=== PATIENT | male | born 1950 | race Caucasian/White ===

== ENCOUNTER → 2017-05-11 07:32 | Outpatient (CLI) | payer MEDICARE, OTHER, SELFPAY ==
[2017-05-11 08:04] LABS: Basophils % 0.6 % (0.1-2.0); Eosinophils # 0.3 K/mm3 (0.0-0.4); Eosinophils % 4.5 % (0.1-12.0); Hematocrit 51.2 % (42.0-52.0); Hemoglobin 16.7 g/dL (14.1-18.0); Lymphocytes # 2.8 K/mm3 (0.7-4.5); Lymphocytes % 40.8 K/mm3 (10-50); Mean Corpuscular HGB Conc 32.7 g/dL (31.8-35.4); Mean Corpuscular Hemoglobin 30.2 pg (27.0-31.2); Mean Corpuscular Volume 92.3 fl (80-94); Mean Platelet Volume 7.1 fl (7.4-10.4); Monocytes # 0.4 K/mm3 (0.1-1.0); Monocytes % 5.8 % (1.7-9.3); Neutrophils # 3.4 K/mm3 (1.8-7.8); Neutrophils % 48.2 % (37.0-80.0); Platelet Count 369 K/mm3 (142-424); Red Blood Count 5.55 M/mm3 (4.60-6.20); Red Cell Distribution Width 13.4 % (11.5-17.5); White Blood Count 6.9 K/mm3 (4.8-10.8)
[2017-05-11 09:19] LABS: Hemoglobin A1C 9.9 % (0.0-7.0)
[2017-05-11 09:55] LABS: Alanine Aminotransferase 66 U/L (12-78); Albumin Level 4.2 gm/dL (3.4-5.0); Albumin/Globulin Ratio 1.1 (1.1-1.8); Alkaline Phosphatase 83 U/L (46-116); Anion Gap 15.3 mEq/L (5-15); Aspartate Amino Transferase 23 U/L (15-37); Bilirubin,Total 0.3 mg/dL (0.2-1.0); Blood Urea Nitrogen 26 mg/dL (7-18); Calcium 9.9 mg/dL (8.5-10.1); Carbon Dioxide 28 mmol/L (21.0-32.0); Chloride 99 mmol/L (98-107); Chol/HDL Ratio 5.8 (1-3.5); Cholesterol 174 mg/dL (140-200); Creatinine,Serum 1.02 mg/dL (0.70-1.30); Estimated Glomerular Filt Rate 73 ml/min (>60); GFR (African American) 89 ML/MIN (>60); Globulin 3.7 gm/dl (1.3-3.2); Glucose 315 mg/dL (74-106); HDL Cholesterol 30 mg/dL (27-67); LDL Cholesterol 85 mg/dL (0-130); Potassium 5.3 mmoL/L (3.5-5.1); Sodium 137 mmol/L (136-145); Thyroid Stimulating Hormone 6.18 uIU/ml (0.358-3.740); Total Protein,Serum 7.9 gm/dL (6.4-8.2); Triglycerides 295 mg/dL (30-200); VLDL Cholesterol 59 mg/dL (0-40)
== END ==
PROVIDERS: PCP Nurse Practitioner Family; Visit Provider Nurse Practitioner Family
DX: E03.9 Hypothyroidism, unspecified (principal); E11.9 Type 2 diabetes mellitus without complications
CPT/HCPCS: 36415; 80053; 80061; 83036; 84436; 84443; 85025

== ENCOUNTER → 2017-07-11 08:07 | Outpatient (CLI) | payer MEDICARE, OTHER, SELFPAY ==
[2017-07-11 09:40] LABS: T4 (Thyroxine) 9.6 ug/dl (4.7-13.3); Thyroid Stimulating Hormone 1.59 uIU/ml (0.358-3.740)
== END ==
PROVIDERS: Visit Provider Nurse Practitioner Family
DX: E03.9 Hypothyroidism, unspecified (principal)
CPT/HCPCS: 36415; 84436; 84443

== ENCOUNTER → 2017-08-31 07:48 | Outpatient (CLI) | payer MEDICARE, OTHER, SELFPAY ==
[2017-08-31 07:52] LABS: Microscopic, Urine URINE MICROSCOPIC (MICROSCOPIC)
[2017-08-31 08:34] LABS: Appearance,Urine CLEAR (Clear); Bilirubin,Urine Negative (Negative); Blood, Urine Negative (Negative); Color,Urine YELLOW (Yellow); Glucose,Urine (UA) Negative (Negative); Ketones,Urine Negative (Negative); Leukocyte Esterase,Urine Negative (Negative); Nitrate,Urine Negative (Negative); PH,Urine 5.5 (5.0-8.5); Protein,Urine 1+ (Negative); Urobilinogen,Urine 0.2 EU/dl (0.2)
[2017-08-31 09:20] LABS: Creatinine,Urine Random 61 mg/dL (20-320); Total Protein,Urine Random 33.5 mg/dL (0.0-11.9)
[2017-08-31 09:39] LABS: Albumin Level 4.2 gm/dL (3.4-5.0); Anion Gap 15.9 mEq/L (5-15); Blood Urea Nitrogen 20 mg/dL (7-18); Calcium 9.9 mg/dL (8.5-10.1); Carbon Dioxide 26 mmol/L (21.0-32.0); Chloride 102 mmol/L (98-107); Creatinine,Serum 0.93 mg/dL (0.70-1.30); Estimated Glomerular Filt Rate 82 ml/min (>60); GFR (African American) 99 ML/MIN (>60); Glucose 175 mg/dL (74-106); Phosphorous 3.6 mg/dL (2.4-4.9); Potassium 4.9 mmoL/L (3.5-5.1); Sodium 139 mmol/L (136-145)
[2017-08-31 10:01] LABS: Bacteria,Urine Trace /lpf; WBC,Urine Occasional #/hpf (0-3)
== END ==
PROVIDERS: Visit Provider Internal Medicine Nephrology
DX: N18.2 Chronic kidney disease, stage 2 (mild) (principal)
CPT/HCPCS: 36415; 80069; 81001; 82570; 84155

== ENCOUNTER → 2017-09-06 15:05 | Outpatient (POV) | payer MEDICARE, OTHER, SELFPAY | PROVIDERS: Family Provider Nurse Practitioner Family; PCP Emergency Medicine; Visit Provider Internal Medicine Nephrology | DX: Z00.00 Encounter for general adult medical examination without abnormal findings (principal) ==

== ENCOUNTER → 2017-11-22 07:23 | Outpatient (CLI) | payer MEDICARE, OTHER, SELFPAY ==
[2017-11-22 09:24] LABS: Basophils % 0.5 % (0.1-2.0); Eosinophils # 0.3 K/mm3 (0.0-0.4); Eosinophils % 4.9 % (0.1-12.0); Hematocrit 45.9 % (42.0-52.0); Hemoglobin 15.2 g/dL (14.1-18.0); Lymphocytes # 2.8 K/mm3 (0.7-4.5); Lymphocytes % 43.8 K/mm3 (10-50); Mean Corpuscular HGB Conc 33.2 g/dL (31.8-35.4); Mean Corpuscular Hemoglobin 30.4 pg (27.0-31.2); Mean Corpuscular Volume 91.7 fl (80-94); Mean Platelet Volume 7.4 fl (7.4-10.4); Monocytes # 0.4 K/mm3 (0.1-1.0); Monocytes % 6.1 % (1.7-9.3); Neutrophils # 2.8 K/mm3 (1.8-7.8); Neutrophils % 44.6 % (37.0-80.0); Platelet Count 345 K/mm3 (142-424); Red Blood Count 5.01 M/mm3 (4.60-6.20); Red Cell Distribution Width 13.3 % (11.5-17.5); White Blood Count 6.3 K/mm3 (4.8-10.8)
[2017-11-22 10:47] LABS: Hemoglobin A1C 6.9 % (0.0-7.0)
[2017-11-22 11:45] LABS: Alanine Aminotransferase 57 U/L (12-78); Albumin Level 4.4 gm/dL (3.4-5.0); Albumin/Globulin Ratio 1.3 (1.1-1.8); Alkaline Phosphatase 78 U/L (46-116); Anion Gap 14.9 mEq/L (5-15); Aspartate Amino Transferase 16 U/L (15-37); Bilirubin,Total 0.3 mg/dL (0.2-1.0); Blood Urea Nitrogen 26 mg/dL (7-18); Calcium 10.2 mg/dL (8.5-10.1); Carbon Dioxide 27 mmol/L (21.0-32.0); Chloride 101 mmol/L (98-107); Chol/HDL Ratio 3.8 (1-3.5); Cholesterol 129 mg/dL (140-200); Creatinine,Serum 1.06 mg/dL (0.70-1.30); Estimated Glomerular Filt Rate 70 ml/min (>60); GFR (African American) 85 ML/MIN (>60); Globulin 3.4 gm/dl (1.3-3.2); Glucose 169 mg/dL (74-106); HDL Cholesterol 34 mg/dL (27-67); LDL Cholesterol 67 mg/dL (0-130); Potassium 4.9 mmoL/L (3.5-5.1); Sodium 138 mmol/L (136-145); T4 (Thyroxine) 9.3 ug/dl (4.7-13.3); Thyroid Stimulating Hormone 1.17 uIU/ml (0.358-3.740); Total Protein,Serum 7.8 gm/dL (6.4-8.2); Triglycerides 141 mg/dL (30-200); VLDL Cholesterol 28 mg/dL (0-40)
[2017-11-23 08:28] LABS: Vitamin D 25 Hydroxy 38.7 ng/mL (30.0-100.0)
[2017-11-23 13:47] LABS: Microalbumin, Urine 285.2 ug/mL (Not Estab.)
== END ==
PROVIDERS: Visit Provider Nurse Practitioner Family
DX: E11.69 Type 2 diabetes mellitus with other specified complication (principal); E66.9 Obesity, unspecified
CPT/HCPCS: 36415; 80053; 80061; 82043; 82652; 83036; 84436; 84443; 85025

== ENCOUNTER → 2018-03-12 14:33 | Outpatient (CLI) | payer MEDICARE, OTHER, SELFPAY ==
[2018-03-12 15:20] LABS: Basophils % 0.5 % (0.1-2.0); Eosinophils # 0.3 K/mm3 (0.0-0.4); Eosinophils % 4.1 % (0.1-12.0); Hematocrit 45.8 % (42.0-52.0); Hemoglobin 15.2 g/dL (14.1-18.0); Lymphocytes # 2.9 K/mm3 (0.7-4.5); Lymphocytes % 44.5 % (10-50); Mean Corpuscular HGB Conc 33.3 g/dL (31.8-35.4); Mean Corpuscular Hemoglobin 30.5 pg (27.0-31.2); Mean Corpuscular Volume 91.8 fl (80-94); Mean Platelet Volume 7.1 fl (7.4-10.4); Monocytes # 0.4 K/mm3 (0.1-1.0); Monocytes % 5.6 % (1.7-9.3); Neutrophils % 45.3 % (37.0-80.0); Platelet Count 367 K/mm3 (142-424); Red Blood Count 4.99 M/mm3 (4.60-6.20); Red Cell Distribution Width 13.7 % (11.5-17.5); White Blood Count 6.6 K/mm3 (4.8-10.8)
[2018-03-12 16:11] LABS: Anion Gap 14.7 mEq/L (5-15); Blood Urea Nitrogen 25 mg/dL (7-18); Calcium 9.9 mg/dL (8.5-10.1); Carbon Dioxide 28 mmol/L (21.0-32.0); Chloride 102 mmol/L (98-107); Creatinine,Serum 1.11 mg/dL (0.70-1.30); Estimated Glomerular Filt Rate 66 ml/min (>60); GFR (African American) 80 ML/MIN (>60); Glucose 165 mg/dL (74-106); Potassium 4.7 mmoL/L (3.5-5.1); Sodium 140 mmol/L (136-145)
== END ==
PROVIDERS: PCP Nurse Practitioner Family; Visit Provider Surgery
DX: L72.9 Follicular cyst of the skin and subcutaneous tissue, unspecified (principal); Z01.818 Encounter for other preprocedural examination
CPT/HCPCS: 36415; 80048; 85025

== ENCOUNTER → 2018-07-19 06:58 | Outpatient (CLI) | payer MEDICARE, OTHER, SELFPAY ==
[2018-07-19 07:56] LABS: Basophils % 0.6 % (0.1-2.0); Eosinophils # 0.3 K/mm3 (0.0-0.4); Eosinophils % 6.2 % (0.1-12.0); Hematocrit 44.7 % (42.0-52.0); Hemoglobin 15.1 g/dL (14.1-18.0); Lymphocytes # 2.5 K/mm3 (0.7-4.5); Lymphocytes % 50.1 % (10-50); Mean Corpuscular HGB Conc 33.8 g/dL (31.8-35.4); Mean Corpuscular Hemoglobin 30.6 pg (27.0-31.2); Mean Corpuscular Volume 90.6 fl (80-94); Mean Platelet Volume 7.1 fl (7.4-10.4); Monocytes # 0.3 K/mm3 (0.1-1.0); Monocytes % 6.3 % (1.7-9.3); Neutrophils # 1.8 K/mm3 (1.8-7.8); Neutrophils % 36.9 % (37.0-80.0); Platelet Count 346 K/mm3 (142-424); Red Blood Count 4.93 M/mm3 (4.60-6.20); Red Cell Distribution Width 13.5 % (11.5-17.5)
[2018-07-19 08:02] LABS: MANUAL DIFFERENTIAL MANUAL DIFFERENTIAL (MANUAL DIFF)
[2018-07-19 10:19] LABS: Eosinophils % 7 % (0-3); Lymphocytes % 51 % (10-50); Monocytes % 6 % (2-9); Neutrophils % 35 % (42-76); Platelet Estimate Normal; RBC Morphology Normal; Total Cells Counted 100
[2018-07-19 10:22] LABS: Alanine Aminotransferase 51 U/L (12-78); Albumin Level 4.2 gm/dL (3.4-5.0); Albumin/Globulin Ratio 1.2 (1.1-1.8); Alkaline Phosphatase 58 U/L (46-116); Anion Gap 15.8 mEq/L (5-15); Bilirubin,Total 0.4 mg/dL (0.2-1.0); Blood Urea Nitrogen 22 mg/dL (7-18); Calcium 9.8 mg/dL (8.5-10.1); Carbon Dioxide 26 mmol/L (21.0-32.0); Chloride 98 mmol/L (98-107); Chol/HDL Ratio 8.3 (1-3.5); Cholesterol 233 mg/dL (140-200); Creatinine,Serum 0.95 mg/dL (0.70-1.30); Estimated Glomerular Filt Rate 79 ml/min (>60); GFR (African American) 96 ML/MIN (>60); Globulin 3.6 gm/dl (1.3-3.2); Glucose 212 mg/dL (74-106); HDL Cholesterol 28 mg/dL (27-67); LDL Cholesterol 146 mg/dL (0-130); Sodium 135 mmol/L (136-145); Thyroid Stimulating Hormone 1.61 uIU/ml (0.358-3.740); Total Protein,Serum 7.8 gm/dL (6.4-8.2); Triglycerides 296 mg/dL (30-200); VLDL Cholesterol 59 mg/dL (0-40)
[2018-07-19 10:29] LABS: Potassium 4.8 mmoL/L (3.5-5.1)
[2018-07-19 10:30] LABS: Aspartate Amino Transferase 21 U/L (15-37)
[2018-07-19 11:09] LABS: Hemoglobin A1C 7.9 % (0.0-7.0)
[2018-07-20 19:08] LABS: Vitamin D 25 Hydroxy 38.2 ng/mL (30.0-100.0)
== END ==
PROVIDERS: PCP Emergency Medicine; Visit Provider Nurse Practitioner Family
DX: E11.69 Type 2 diabetes mellitus with other specified complication (principal); E66.9 Obesity, unspecified; R53.83 Other fatigue; E78.5 Hyperlipidemia, unspecified; Z79.84 Long term (current) use of oral hypoglycemic drugs
CPT/HCPCS: 36415; 80053; 80061; 82043; 82652; 83036; 84436; 84443; 85007; 85025

== ENCOUNTER → 2018-11-01 07:14 | Outpatient (CLI) | payer MEDICARE, OTHER, SELFPAY ==
[2018-11-01 08:42] LABS: Microscopic, Urine URINE MICROSCOPIC (MICROSCOPIC)
[2018-11-01 08:49] LABS: Basophils % 0.6 % (0.1-2.0); Eosinophils # 0.3 K/mm3 (0.0-0.4); Eosinophils % 4.1 % (0.1-12.0); Hematocrit 47.9 % (42.0-52.0); Hemoglobin 15.2 g/dL (14.1-18.0); Lymphocytes # 2.6 K/mm3 (0.7-4.5); Lymphocytes % 40.5 % (10-50); Mean Corpuscular HGB Conc 31.8 g/dL (31.8-35.4); Mean Corpuscular Hemoglobin 30.3 pg (27.0-31.2); Mean Corpuscular Volume 95.1 fl (80-94); Mean Platelet Volume 7.6 fl (7.4-10.4); Monocytes # 0.3 K/mm3 (0.1-1.0); Monocytes % 5.2 % (1.7-9.3); Neutrophils # 3.1 K/mm3 (1.8-7.8); Neutrophils % 49.6 % (37.0-80.0); Platelet Count 378 K/mm3 (142-424); Red Blood Count 5.03 M/mm3 (4.60-6.20); White Blood Count 6.3 K/mm3 (4.8-10.8)
[2018-11-01 08:55] LABS: Appearance,Urine CLEAR (Clear); Bilirubin,Urine Negative (Negative); Blood, Urine Negative (Negative); Color,Urine YELLOW (Yellow); Glucose,Urine (UA) Negative (Negative); Ketones,Urine Negative (Negative); Leukocyte Esterase,Urine Negative (Negative); Nitrate,Urine Negative (Negative); Protein,Urine TRACE (Negative); Urobilinogen,Urine 0.2 EU/dl (0.2)
[2018-11-01 09:23] LABS: Bacteria,Urine Trace /lpf; WBC,Urine Occasional #/hpf (0-3)
[2018-11-01 11:40] LABS: Albumin Level 4.2 gm/dL (3.4-5.0); Anion Gap 16.7 mEq/L (5-15); Blood Urea Nitrogen 20 mg/dL (7-18); Calcium 9.7 mg/dL (8.5-10.1); Carbon Dioxide 26 mmol/L (21.0-32.0); Chloride 99 mmol/L (98-107); Creatinine,Serum 0.97 mg/dL (0.70-1.30); Estimated Glomerular Filt Rate 77 ml/min (>60); GFR (African American) 93 ML/MIN (>60); Glucose 203 mg/dL (74-106); Phosphorous 3.5 mg/dL (2.4-4.9); Potassium 4.7 mmoL/L (3.5-5.1); Sodium 137 mmol/L (136-145)
[2018-11-01 11:47] LABS: Creatinine,Urine Random 43 mg/dL (20-320); Total Protein,Urine Random 38.6 mg/dL (0.0-11.9)
[2018-11-02 18:46] LABS: Calcium, Ionized 5.3 mg/dL (4.5-5.6); Parathyroid Hormone Intact 31 pg/mL (15-65)
[2018-11-02 18:47] LABS: Vitamin D 25 Hydroxy 46.6 ng/mL (30.0-100.0)
== END ==
PROVIDERS: Visit Provider Internal Medicine Nephrology
DX: N18.2 Chronic kidney disease, stage 2 (mild) (principal)
CPT/HCPCS: 36415; 80069; 81001; 82330; 82570; 82652; 83970; 84155; 85025

== ENCOUNTER → 2018-11-11 12:36 | Outpatient (POV) | payer MEDICARE, OTHER, SELFPAY | PROVIDERS: Visit Provider Internal Medicine Nephrology | DX: Z00.00 Encounter for general adult medical examination without abnormal findings (principal) ==

== ENCOUNTER → 2019-02-12 08:20 | Outpatient (CLI) | payer MEDICARE, OTHER, SELFPAY ==
[2019-02-12 09:21] LABS: Alanine Aminotransferase 49 U/L (12-78); Albumin Level 4.2 gm/dL (3.4-5.0); Alkaline Phosphatase 46 U/L (46-116); Aspartate Amino Transferase 16 U/L (15-37); Bilirubin,Direct 0.1 mg/dL (0.0-0.2); Bilirubin,Indirect 0.3 mg/dL (0.0-0.9); Bilirubin,Total 0.4 mg/dL (0.2-1.0); Chol/HDL Ratio 3.7 (1-3.5); Cholesterol 133 mg/dL (140-200); HDL Cholesterol 36 mg/dL (27-67); LDL Cholesterol 75 mg/dL (0-130); Total Protein,Serum 7.6 gm/dL (6.4-8.2); Triglycerides 112 mg/dL (30-200); VLDL Cholesterol 22 mg/dL (0-40)
== END ==
PROVIDERS: Internal Medicine Cardiovascular Disease; Visit Provider Internal Medicine
DX: E11.69 Type 2 diabetes mellitus with other specified complication (principal); E66.9 Obesity, unspecified; E78.2 Mixed hyperlipidemia; G45.9 Transient cerebral ischemic attack, unspecified; I10 Essential (primary) hypertension; I25.10 Atherosclerotic heart disease of native coronary artery without angina pectoris; Z79.4 Long term (current) use of insulin
CPT/HCPCS: 36415; 80061; 80076

== ENCOUNTER → 2019-04-03 09:36 | Outpatient (CLI) | payer MEDICARE, OTHER, SELFPAY ==
--- NOTE | 2019-04-03 09:37 | MR_ITS ---
PROCEDURE: MR HEAD/BRAIN WO CON CLINICAL INDICATION: sixth cranial nerve palsy Double vision with headache and dizziness COMPARISON: CT HEAD/BRAIN WO CON from 02/14/2019 TECHNIQUE: Routine multiplanar multi echo sequences are performed without gadolinium enhancement. FINDINGS: No midline shift, mass effect, intracranial hemorrhage, or hydrocephalus. No evidence of acute infarction. There is mild periventricular and subcortical T2 white matter hyperintensity consistent with ischemic gliotic change from small vessel disease. There is a small area of encephalomalacia in the left parietal lobe posteriorly. There is a partial empty sella as a normal variant. The optic chiasm, corpus callosum, and craniocervical junction has an unremarkable appearance there is a bulging disc barely visible on the sagittal images at C3-C4 with suspected canal stenosis. No mastoid effusion. Mild mucosal thickening is present in the maxillary and ethmoid sinuses IMPRESSION: No acute intracranial findings Bulging disc at C3-C4 with suspected canal stenosis. This is barely visible on the edge of the image on the sagittal views and may be better evaluated with cervical spine MRI if clinically desired. Dictated by: Stewart Wang MD 04/03/2019 14:01 Electronically signed by Stewart Wang MD in [facility] 04/03/2019 14:01
== END ==
PROVIDERS: PCP Nurse Practitioner Family; Visit Provider Specialist
DX: H49.22 Sixth [abducent] nerve palsy, left eye (principal); H53.2 Diplopia; H53.8 Other visual disturbances; R51 Headache
CPT/HCPCS: 70551

== ENCOUNTER → 2019-04-08 12:20 | Outpatient (CLI) | payer MEDICARE, OTHER, SELFPAY | PROVIDERS: PCP Nurse Practitioner Family; Visit Provider Specialist | DX: G47.33 Obstructive sleep apnea (adult) (pediatric) (principal); G47.30 Sleep apnea, unspecified; R06.83 Snoring; I10 Essential (primary) hypertension; I25.10 Atherosclerotic heart disease of native coronary artery without angina pectoris; E11.69 Type 2 diabetes mellitus with other specified complication; E66.9 Obesity, unspecified; I25.2 Old myocardial infarction | CPT/HCPCS: G0399 ==

== ENCOUNTER → 2019-11-26 08:56 | Outpatient (CLI) | payer MEDICARE, OTHER, SELFPAY ==
[2019-11-26 09:01] LABS: Microscopic, Urine URINE MICROSCOPIC (MICROSCOPIC)
[2019-11-26 09:47] LABS: Basophils % 0.3 % (0.1-2.0); Eosinophils # 0.3 K/mm3 (0.0-0.4); Eosinophils % 4.8 % (0.1-12.0); Hematocrit 44.1 % (42.0-52.0); Hemoglobin 15.1 g/dL (14.1-18.0); Lymphocytes # 2.3 K/mm3 (0.7-4.5); Lymphocytes % 38.9 % (10-50); Mean Corpuscular HGB Conc 34.1 g/dL (31.8-35.4); Mean Corpuscular Volume 90.9 fl (80-94); Mean Platelet Volume 7.3 fl (7.4-10.4); Monocytes # 0.3 K/mm3 (0.1-1.0); Monocytes % 5.3 % (1.7-9.3); Neutrophils % 50.7 % (37.0-80.0); Platelet Count 341 K/mm3 (142-424); Red Blood Count 4.86 M/mm3 (4.60-6.20); Red Cell Distribution Width 14.1 % (11.5-17.5); White Blood Count 5.9 K/mm3 (4.8-10.8)
[2019-11-26 10:36] LABS: Chloride 101 mmol/L (98-107); Potassium 4.6 mmoL/L (3.5-5.1); Sodium 139 mmol/L (136-145)
[2019-11-26 10:37] LABS: Albumin Level 4.6 g/dl (3.5-5.0); Appearance,Urine CLEAR (Clear); Bilirubin,Urine Negative (Negative); Blood, Urine Negative (Negative); Color,Urine YELLOW (Yellow); Glucose,Urine (UA) Negative (Negative); Ketones,Urine Negative (Negative); Leukocyte Esterase,Urine Negative (Negative); Nitrate,Urine Negative (Negative); Protein,Urine 1+ (Negative); Specific Gravity, Urine 1.025 (1.005-1.030); Urobilinogen,Urine 0.2 EU/dl (0.2)
[2019-11-26 10:39] LABS: Anion Gap 16.6 mEq/L (5-15); Blood Urea Nitrogen 27 mg/dl (9-20); Carbon Dioxide 26 mmol/L (22.0-30.0); Estimated Glomerular Filt Rate 74 ml/min (>60); GFR (African American) 90 ML/MIN (>60); Phosphorous 3.6 mg/dl (2.5-4.5)
[2019-11-26 10:40] LABS: Calcium 10.2 mg/dl (8.4-10.2); Glucose 151 mg/dl (74-100)
[2019-11-26 10:45] LABS: Creatinine,Urine Random 69 mg/dL (Not Estab.)
[2019-11-26 10:50] LABS: Squamous Epithelial Cell,Urine Occasional #/hpf (0-5); WBC,Urine Occasional #/hpf (0-3)
== END ==
PROVIDERS: Visit Provider Internal Medicine Nephrology
DX: N18.2 Chronic kidney disease, stage 2 (mild) (principal)
CPT/HCPCS: 36415; 80069; 81001; 82570; 84155; 85025

== ENCOUNTER → 2020-03-08 07:46 | Outpatient (CLI) | payer MEDICARE, OTHER, SELFPAY ==
[2020-03-08 07:51] LABS: Microscopic, Urine URINE MICROSCOPIC (MICROSCOPIC)
[2020-03-08 08:16] LABS: Basophils % 0.5 % (0.1-2.0); Eosinophils # 0.4 K/mm3 (0.0-0.4); Eosinophils % 4.7 % (0.1-12.0); Hematocrit 48.8 % (42.0-52.0); Hemoglobin 16.4 g/dL (14.1-18.0); Lymphocytes # 2.7 K/mm3 (0.7-4.5); Lymphocytes % 36.6 % (10-50); Mean Corpuscular HGB Conc 33.7 g/dL (31.8-35.4); Mean Corpuscular Hemoglobin 30.8 pg (27.0-31.2); Mean Corpuscular Volume 91.5 fl (80-94); Mean Platelet Volume 7.7 fl (7.4-10.4); Monocytes # 0.5 K/mm3 (0.1-1.0); Monocytes % 6.3 % (1.7-9.3); Neutrophils # 3.8 K/mm3 (1.8-7.8); Platelet Count 373 K/mm3 (142-424); Red Blood Count 5.33 M/mm3 (4.60-6.20); Red Cell Distribution Width 14.3 % (11.5-17.5); White Blood Count 7.4 K/mm3 (4.8-10.8)
[2020-03-08 08:40] LABS: Chloride 97 mmol/L (98-107)
[2020-03-08 08:41] LABS: Albumin Level 5.3 g/dl (3.5-5.0); Potassium 4.1 mmoL/L (3.5-5.1); Sodium 138 mmol/L (136-145)
[2020-03-08 08:43] LABS: Blood Urea Nitrogen 29 mg/dl (9-20); Estimated Glomerular Filt Rate 67 ml/min (>60); GFR (African American) 81 ML/MIN (>60)
[2020-03-08 08:44] LABS: Anion Gap 17.1 mEq/L (5-15); Calcium 10.4 mg/dl (8.4-10.2); Carbon Dioxide 28 mmol/L (22.0-30.0); Glucose 178 mg/dl (74-100); Phosphorous 4.3 mg/dl (2.5-4.5)
[2020-03-08 10:32] LABS: Appearance,Urine CLEAR (Clear); Bilirubin,Urine Negative (Negative); Blood, Urine Negative (Negative); Color,Urine YELLOW (Yellow); Glucose,Urine (UA) Negative (Negative); Ketones,Urine Negative (Negative); Leukocyte Esterase,Urine Negative (Negative); Nitrate,Urine Negative (Negative); PH,Urine 5.5 (5.0-8.5); Protein,Urine TRACE (Negative); Specific Gravity, Urine 1.015 (1.005-1.030); Urobilinogen,Urine 0.2 EU/dl (0.2)
[2020-03-08 10:41] LABS: Creatinine,Urine Random 55 mg/dL (Not Estab.)
[2020-03-08 10:46] LABS: RBC,Urine Occasional #/hpf (0-3)
== END ==
PROVIDERS: Visit Provider Internal Medicine Nephrology
DX: R80.9 Proteinuria, unspecified (principal)
CPT/HCPCS: 36415; 80069; 81001; 82570; 84155; 85025

== ENCOUNTER → 2020-08-05 16:40 | Outpatient (CLI) | payer MEDICARE, OTHER, SELFPAY ==
[2020-08-05 17:21] LABS: Hemoglobin A1C 7.1 % (4.0-6.0)
[2020-08-28 11:21] LABS: AChR Binding Abs <0.03; AChR Blocking Abs 20
[2020-08-28 11:22] LABS: AChR Modulating Ab <12; Anti-Striation (muscle) Abs NEGATIVE
== END ==
PROVIDERS: Visit Provider Specialist
DX: G52.9 Cranial nerve disorder, unspecified (principal); E11.69 Type 2 diabetes mellitus with other specified complication; E66.9 Obesity, unspecified; Z79.4 Long term (current) use of insulin; Z68.32 Body mass index [BMI] 32.0-32.9, adult
CPT/HCPCS: 36415; 83036; 84238; 86255

== ENCOUNTER → 2020-08-31 14:39 | Outpatient (CLI) | payer MEDICARE, OTHER, SELFPAY ==
--- NOTE | 2020-08-31 14:45 | XR_ITS ---
PROCEDURE: XR HAND LT MIN 3V CLINICAL INDICATION: left hand pain COMPARISON: No exams were available for comparison FINDINGS: No fracture or dislocation. No lytic or blastic change. There is normal mineralization. The joint spaces are well-preserved. No significant degenerative/arthritic changes. No erosive changes evident. Other findings:Small well-circumscribed calcific density is present at the base the 1st metacarpal nonspecific and could be due to an old injury or dystrophic calcification. IMPRESSION: No acute findings. Dictated by: Stewart Wang MD 08/31/2020 17:00 Stewart Wang MD in [facility] 08/31/2020 17:00
== END ==
PROVIDERS: PCP Nurse Practitioner Family; Visit Provider Orthopaedic Surgery
DX: M79.642 Pain in left hand (principal)
CPT/HCPCS: 73130

== ENCOUNTER → 2020-11-27 11:17 | Outpatient (CLI) | payer MEDICARE, OTHER, SELFPAY ==
[2020-11-27 11:23] LABS: Microscopic, Urine URINE MICROSCOPIC (MICROSCOPIC)
[2020-11-27 14:09] LABS: Appearance,Urine CLEAR (Clear); Bilirubin,Urine Negative (Negative); Blood, Urine TRACE-L (Negative); Color,Urine YELLOW (Yellow); Glucose,Urine (UA) Negative (Negative); Ketones,Urine Negative (Negative); Leukocyte Esterase,Urine Negative (Negative); Nitrate,Urine Negative (Negative); Protein,Urine 2+ (Negative); Specific Gravity, Urine 1.025 (1.005-1.030); Urobilinogen,Urine 0.2 EU/dl (0.2)
[2020-11-27 14:24] LABS: Creatinine,Urine Random 94 mg/dL (Not Estab.)
[2020-11-27 15:18] LABS: Anion Gap 21.2 mEq/L (5-15); Blood Urea Nitrogen 29 mg/dl (9-20); Calcium 10.5 mg/dl (8.4-10.2); Carbon Dioxide 24 mmol/L (22.0-30.0); Chloride 100 mmol/L (98-107); Estimated Glomerular Filt Rate 74 ml/min (>60); GFR (African American) 90 ML/MIN (>60); Glucose 153 mg/dl (74-100); Phosphorous 3.2 mg/dl (2.5-4.5); Potassium 5.2 mmoL/L (3.5-5.1); Sodium 140 mmol/L (136-145)
[2020-11-27 15:19] LABS: Bacteria,Urine Trace /lpf; Squamous Epithelial Cell,Urine Occasional #/hpf (0-5)
== END ==
PROVIDERS: Visit Provider Internal Medicine Nephrology
DX: N18.2 Chronic kidney disease, stage 2 (mild) (principal)
CPT/HCPCS: 80069; 81001; 82570; 84156; 84166

== ENCOUNTER → 2020-12-02 13:36 | Outpatient (POV) | payer MEDICARE, OTHER, SELFPAY | PROVIDERS: Visit Provider Internal Medicine Nephrology | DX: Z00.00 Encounter for general adult medical examination without abnormal findings (principal) ==

== ENCOUNTER → 2022-02-08 07:08 | Outpatient (CLI) | payer MEDICARE, OTHER, SELFPAY ==
[2022-02-08 07:20] LABS: Microscopic, Urine URINE MICROSCOPIC (MICROSCOPIC)
[2022-02-08 08:36] LABS: Appearance,Urine CLEAR (Clear); Bilirubin,Urine Negative (Negative); Blood, Urine TRACE-I (Negative); Color,Urine YELLOW (Yellow); Glucose,Urine (UA) Negative (Negative); Ketones,Urine Negative (Negative); Leukocyte Esterase,Urine Negative (Negative); Nitrate,Urine Negative (Negative); PH,Urine 5.5 (5.0-8.5); Protein,Urine 1+ (Negative); Specific Gravity, Urine 1.025 (1.005-1.030); Urobilinogen,Urine 0.2 EU/dl (0.2)
[2022-02-08 08:39] LABS: Basophils # 0.1 K/mm3 (0-0.2); Basophils % 1.3 % (0.1-2.0); Eosinophils # 0.4 K/mm3 (0.0-0.4); Eosinophils % 5.6 % (0.1-12.0); Hemoglobin 16.2 g/dL (14.1-18.0); Lymphocytes # 2.7 K/mm3 (0.7-4.5); Lymphocytes % 40.9 % (10-50); Mean Corpuscular HGB Conc 32.4 g/dL (31.8-35.4); Mean Corpuscular Hemoglobin 30.6 pg (27.0-31.2); Mean Corpuscular Volume 94.2 fl (80-94); Mean Platelet Volume 7.7 fl (7.4-10.4); Monocytes # 0.4 K/mm3 (0.1-1.0); Monocytes % 6.7 % (1.7-9.3); Neutrophils % 45.5 % (37.0-80.0); Platelet Count 388 K/mm3 (142-424); Red Blood Count 5.31 M/mm3 (4.60-6.20); Red Cell Distribution Width 14.1 % (11.5-17.5); White Blood Count 6.6 K/mm3 (4.8-10.8)
[2022-02-08 08:49] LABS: Creatinine,Urine Random 71 mg/dL (Not Estab.)
[2022-02-08 09:17] LABS: Bacteria,Urine Trace /lpf; WBC,Urine Occasional #/hpf (0-3)
[2022-02-08 09:18] LABS: Chol/HDL Ratio 5.1 (1-3.5); Cholesterol 158 mg/dl (140-200); HDL Cholesterol 31 mg/dl (40-60); Triglycerides 162 mg/dl (30-150); VLDL Cholesterol 32 mg/dL (0-40)
[2022-02-08 09:18] LABS: Albumin Level 5.1 g/dl (3.5-5.0); Anion Gap 23.1 mEq/L (5-15); Blood Urea Nitrogen 21 mg/dl (9-20); Calcium 10.5 mg/dl (8.4-10.2); Carbon Dioxide 27 mmol/L (22.0-30.0); Chloride 97 mmol/L (98-107); Estimated Glomerular Filt Rate 66 ml/min (>60); GFR (African American) 80 ML/MIN (>60); Glucose 204 mg/dl (74-100); Phosphorous 3.5 mg/dl (2.5-4.5); Potassium 5.1 mmoL/L (3.5-5.1); Sodium 142 mmol/L (136-145)
[2022-02-08 09:29] LABS: Direct LDL Cholesterol 93.68 mg/dL (100-129)
[2022-02-08 09:31] LABS: Intact Parathyroid Hormone 51.1 pg/mL (7.5-53.5)
[2022-02-08 09:35] LABS: 25-OH Vitamin D, Total 49.4 ng/mL (30-100)
[2022-02-08 09:50] LABS: Thyroid Stimulating Hormone 0.32 uIU/mL (0.465-4.68)
== END ==
PROVIDERS: Nurse Practitioner Family; PCP Emergency Medicine; Visit Provider Internal Medicine Nephrology
DX: E03.9 Hypothyroidism, unspecified (principal); R80.1 Persistent proteinuria, unspecified; N18.2 Chronic kidney disease, stage 2 (mild); E55.9 Vitamin D deficiency, unspecified; E11.69 Type 2 diabetes mellitus with other specified complication; Z79.4 Long term (current) use of insulin
CPT/HCPCS: 36415; 80061; 80069; 81001; 82306; 82570; 83970; 84155; 84443; 85025

== ENCOUNTER → 2022-02-13 15:33 | Outpatient (POV) | payer MEDICARE, OTHER, SELFPAY | PROVIDERS: Visit Provider Internal Medicine Nephrology | DX: Z00.00 Encounter for general adult medical examination without abnormal findings (principal) ==

== ENCOUNTER → 2023-03-05 08:16 | Outpatient (CLI) | payer MEDICARE, OTHER, SELFPAY ==
[2023-03-05 08:25] LABS: Microscopic, Urine URINE MICROSCOPIC (MICROSCOPIC)
[2023-03-05 09:08] LABS: Basophils % 0.5 % (0.1-2.0); Eosinophils # 0.3 K/mm3 (0.0-0.4); Eosinophils % 4.9 % (0.1-12.0); Hematocrit 44.6 % (42.0-52.0); Hemoglobin 15.2 g/dL (14.1-18.0); Lymphocytes # 2.5 K/mm3 (0.7-4.5); Lymphocytes % 37.1 % (10-50); Mean Corpuscular HGB Conc 34.1 g/dL (31.8-35.4); Mean Corpuscular Hemoglobin 30.9 pg (27.0-31.2); Mean Corpuscular Volume 90.7 fl (80-94); Mean Platelet Volume 7.9 fl (7.4-10.4); Monocytes # 0.4 K/mm3 (0.1-1.0); Monocytes % 5.7 % (1.7-9.3); Neutrophils # 3.5 K/mm3 (1.8-7.8); Neutrophils % 51.8 % (37.0-80.0); Platelet Count 284 K/mm3 (142-424); Red Blood Count 4.92 M/mm3 (4.60-6.20); White Blood Count 6.8 K/mm3 (4.8-10.8)
[2023-03-05 10:47] LABS: Chloride 100 mmol/L (98-107); Potassium 4.5 mmoL/L (3.5-5.1); Sodium 138 mmol/L (136-145)
[2023-03-05 10:48] LABS: Albumin Level 4.7 g/dl (3.5-5.0)
[2023-03-05 10:50] LABS: Anion Gap 12.5 mEq/L (5-15); Blood Urea Nitrogen 18 mg/dl (9-20); Carbon Dioxide 30 mmol/L (22.0-30.0); Estimated Glomerular Filt Rate 66 ml/min (>60); GFR (African American) 80 ML/MIN (>60)
[2023-03-05 10:51] LABS: Calcium 9.3 mg/dl (8.4-10.2); Glucose 119 mg/dl (74-100); Phosphorous 3.8 mg/dl (2.5-4.5)
[2023-03-05 12:45] LABS: Appearance,Urine CLEAR (Clear); Bilirubin,Urine Negative (Negative); Blood, Urine Negative (Negative); Color,Urine YELLOW (Yellow); Glucose,Urine (UA) Negative (Negative); Ketones,Urine Negative (Negative); Leukocyte Esterase,Urine Negative (Negative); Nitrate,Urine Negative (Negative); PH,Urine 6.5 (5.0-8.5); Protein,Urine TRACE (Negative); Urobilinogen,Urine 0.2 EU/dl (0.2)
[2023-03-05 12:56] LABS: Creatinine,Urine Random 75 mg/dL (Not Estab.)
[2023-03-05 14:17] LABS: Bacteria,Urine Trace /lpf
== END ==
PROVIDERS: PCP Nurse Practitioner Family; Visit Provider Internal Medicine Nephrology
DX: R80.1 Persistent proteinuria, unspecified (principal)
CPT/HCPCS: 36415; 80069; 81001; 82570; 84155; 85025

== ENCOUNTER 2023-07-30 18:00 | Outpatient (CLI) | payer MEDICARE, OTHER, SELFPAY ==
[2023-07-30 18:33] LABS: Basophils # 0.1 K/mm3 (0-0.2); Eosinophils # 0.4 K/mm3 (0.0-0.4); Eosinophils % 6.4 % (0.1-12.0); Hematocrit 47.9 % (42.0-52.0); Hemoglobin 15.7 g/dL (14.1-18.0); Lymphocytes # 2.4 K/mm3 (0.7-4.5); Lymphocytes % 37.6 % (10-50); Mean Corpuscular HGB Conc 32.8 g/dL (31.8-35.4); Mean Corpuscular Hemoglobin 31.4 pg (27.0-31.2); Mean Corpuscular Volume 95.6 fl (80-94); Mean Platelet Volume 9.4 fl (7.4-10.4); Monocytes # 0.5 K/mm3 (0.1-1.0); Monocytes % 7.5 % (1.7-9.3); Neutrophils # 3.1 K/mm3 (1.8-7.8); Neutrophils % 47.7 % (37.0-80.0); Platelet Count 317 K/mm3 (142-424); Red Blood Count 5.01 M/mm3 (4.60-6.20); Red Cell Distribution Width 14.3 % (11.5-17.5); White Blood Count 6.5 K/mm3 (4.8-10.8)
[2023-07-30 18:54] LABS: Alanine Aminotransferase 29 U/L (12-78); Albumin Level 4.8 g/dl (3.5-5.0); Albumin/Globulin Ratio 1.8 (1.1-1.8); Alkaline Phosphatase 67 U/L (38-126); Anion Gap 16.6 mEq/L (5-15); Aspartate Amino Transferase 26 U/L (17-59); Bilirubin,Total 0.5 mg/dl (0.2-1.3); Blood Urea Nitrogen 27 mg/dl (9-20); Calcium 10.1 mg/dl (8.4-10.2); Carbon Dioxide 25 mmol/L (22.0-30.0); Chloride 105 mmol/L (98-107); Cholesterol 167 mg/dl (140-200); Estimated Glomerular Filt Rate 60 ml/min (>60); GFR (African American) 72 ML/MIN (>60); Globulin 2.6 g/dL (1.3-3.2); Glucose 189 mg/dl (74-100); HDL Cholesterol 42 mg/dl (40-60); Potassium 4.6 mmoL/L (3.5-5.1); Sodium 142 mmol/L (136-145); Total Protein,Serum 7.4 g/dl (6.3-8.2); Triglycerides 226 mg/dl (30-150); VLDL Cholesterol 45 mg/dL (0-40)
[2023-07-30 19:25] LABS: Prostate Specific Ag Screen 1.7 ng/ml (0.0-4.0); Thyroid Stimulating Hormone 0.15 uIU/mL (0.465-4.68)
[2023-07-30 19:30] LABS: Hemoglobin A1C 7.4 % (4.0-6.0)
== END 2023-07-30 23:59 | disposition home or self-care (01) ==
LOC: LAB.DROPOF 07-31 08:27
PROVIDERS: PCP Physician Assistant; Visit Provider Physician Assistant
DX: I10 Essential (primary) hypertension; E78.2 Mixed hyperlipidemia; E11.69 Type 2 diabetes mellitus with other specified complication; Z12.5 Encounter for screening for malignant neoplasm of prostate; Z79.4 Long term (current) use of insulin
CPT/HCPCS: 80053; 80061; 83036; 84443; 85025; G0103

== ENCOUNTER 2023-10-01 16:41 | Outpatient (CLI) | payer MEDICARE, OTHER, SELFPAY ==
[2023-10-01 16:19] LABS: Basophils % 0.5 % (0.1-2.0); Eosinophils # 0.3 K/mm3 (0.0-0.4); Eosinophils % 4.2 % (0.1-12.0); Hematocrit 42.6 % (42.0-52.0); Hemoglobin 15.8 g/dL (14.1-18.0); Lymphocytes # 2.2 K/mm3 (0.7-4.5); Lymphocytes % 36.3 % (10-50); Mean Corpuscular HGB Conc 37.1 g/dL (31.8-35.4); Mean Corpuscular Volume 94.4 fl (80-94); Mean Platelet Volume 8.6 fl (7.4-10.4); Monocytes # 0.5 K/mm3 (0.1-1.0); Monocytes % 8.5 % (1.7-9.3); Neutrophils % 50.5 % (37.0-80.0); Platelet Count 315 K/mm3 (142-424); Red Blood Count 4.52 M/mm3 (4.60-6.20); Red Cell Distribution Width 14.4 % (11.5-17.5)
[2023-10-01 16:32] LABS: Chloride 102 mmol/L (98-107)
[2023-10-01 16:33] LABS: Potassium 4.5 mmoL/L (3.5-5.1); Sodium 140 mmol/L (136-145)
[2023-10-01 16:35] LABS: Alanine Aminotransferase 32 U/L (12-78); Alkaline Phosphatase 65 U/L (38-126); Anion Gap 17.5 mEq/L (5-15); Aspartate Amino Transferase 27 U/L (17-59); Bilirubin,Total 0.4 mg/dl (0.2-1.3); Blood Urea Nitrogen 18 mg/dl (9-20); Carbon Dioxide 25 mmol/L (22.0-30.0); Cholesterol 148 mg/dl (140-200); Estimated Glomerular Filt Rate 66 ml/min (>60); GFR (African American) 80 ML/MIN (>60); Triglycerides 191 mg/dl (30-150); VLDL Cholesterol 38 mg/dL (0-40)
[2023-10-01 16:36] LABS: Albumin/Globulin Ratio 1.7 (1.1-1.8); Calcium 9.9 mg/dl (8.4-10.2); Chol/HDL Ratio 4.8 (1-3.5); Globulin 2.9 g/dL (1.3-3.2); Glucose 130 mg/dl (74-100); HDL Cholesterol 31 mg/dl (40-60); Total Protein,Serum 7.9 g/dl (6.3-8.2)
[2023-10-01 16:47] LABS: Direct LDL Cholesterol 87.25 mg/dL (100-129)
[2023-10-01 16:53] LABS: 25-OH Vitamin D, Total 54.8 ng/mL (30-100)
[2023-10-01 18:12] LABS: Thyroid Stimulating Hormone 0.17 uIU/mL (0.465-4.68)
[2023-10-01 18:55] LABS: Hemoglobin A1C 7.5 % (4.0-6.0)
== END 2023-10-01 23:59 | disposition home or self-care (01) ==
LOC: LAB.DROPOF 16:42
PROVIDERS: PCP Physician Assistant; Visit Provider Physician Assistant
DX: E11.69 Type 2 diabetes mellitus with other specified complication (principal); E78.2 Mixed hyperlipidemia; E78.5 Hyperlipidemia, unspecified; R53.83 Other fatigue; E55.9 Vitamin D deficiency, unspecified
CPT/HCPCS: 80050; 80053; 80061; 82306; 83036; 84443; 85025

== ENCOUNTER 2024-05-19 07:24 | Outpatient (CLI) | payer MEDICARE, OTHER, SELFPAY ==
[2024-05-19 07:33] LABS: Microscopic, Urine URINE MICROSCOPIC (MICROSCOPIC)
[2024-05-19 08:25] LABS: Appearance,Urine CLEAR (Clear); Bilirubin,Urine Negative (Negative); Blood, Urine Negative (Negative); Color,Urine YELLOW (Yellow); Glucose,Urine (UA) Negative (Negative); Ketones,Urine Negative (Negative); Leukocyte Esterase,Urine Negative (Negative); Nitrate,Urine Negative (Negative); Protein,Urine 2+ (Negative); Specific Gravity, Urine 1.025 (1.005-1.030); Urobilinogen,Urine 0.2 EU/dl (0.2)
[2024-05-19 08:26] LABS: Hematocrit 46.2 % (42.0-52.0); Hemoglobin 15.9 g/dL (14.1-18.0); Mean Corpuscular HGB Conc 34.4 g/dL (31.8-35.4); Mean Corpuscular Hemoglobin 30.2 pg (27.0-31.2); Mean Corpuscular Volume 87.7 fl (80-94); Platelet Count 335 K/mm3 (142-424); Red Blood Count 5.27 M/mm3 (4.60-6.20); Red Cell Distribution Width 13.4 % (11.5-17.5); White Blood Count 7.7 K/mm3 (4.8-10.8)
[2024-05-19 08:30] LABS: Creatinine,Urine Random 82 mg/dL (Not Estab.)
[2024-05-19 08:38] LABS: Squamous Epithelial Cell,Urine Occasional #/hpf (0-5)
[2024-05-19 08:55] LABS: Albumin Level 5.1 g/dl (3.5-5.0); Anion Gap 19.6 mEq/L (5-15); Blood Urea Nitrogen 29 mg/dl (9-20); Calcium 10.1 mg/dl (8.4-10.2); Carbon Dioxide 25 mmol/L (22.0-30.0); Chloride 97 mmol/L (98-107); Estimated Glomerular Filt Rate 66 ml/min (>60); GFR (African American) 80 ML/MIN (>60); Glucose 182 mg/dl (74-100); Phosphorous 3.5 mg/dl (2.5-4.5); Potassium 4.6 mmoL/L (3.5-5.1); Sodium 137 mmol/L (136-145)
== END 2024-05-19 23:59 | disposition home or self-care (01) ==
LOC: LAB 07:28
PROVIDERS: PCP Internal Medicine; Visit Provider Internal Medicine Nephrology
DX: N18.2 Chronic kidney disease, stage 2 (mild) (principal)
CPT/HCPCS: 36415; 80069; 81001; 82570; 84156; 85027